=== PATIENT | male | born 1950 | race Caucasian/White ===

== ENCOUNTER 2017-10-29 04:34 | Emergency (ER) | payer MEDICARE ==
[~2017-10-29] VITALS: Wt 97.5 kg
--- NOTE | ~2017-10-29 | EKG ---
[place], [place] ELECTROCARDIOGRAM REPORT NAME: MAUREEN HIGHTOWER UNIT #: [id number] ROOM: DOCTOR: EPIPHANY DRAFT REPORT BIRTHDATE: [birth year] [facility] Test Date: 2017-10-29 Test Time: 04:58:06 Pat Name: MAUREEN HIGHTOWER Department: Room: Gender: M Order Clerk: Eve Cisneros : 1950 Requested By: PAPITO REDD Order Number: [id number] Reading MD: Isaiah Charles MD Measurements Intervals [place] Rate: 72 P: -31 [place]: 194 QRS: 3 QRSD: 100 T: 22 QT: 456 QTc: 500 Interpretive Statements Sinus rhythm Atrial premature complexes with atrial bigeminy Borderline T wave abnormalities Borderline prolonged QT interval Baseline wander in lead(s) V1,V2,V3,V4,V5,V6 Compared to ECG 10/18/2017 13:26:32 Atrial premature complex(es) now present Electronically Signed On 10-29-2017 16:20:15 PDT by Isaiah Charles MD CM:EKGRPT:ELECTROCARDIOGRAM REPORT [id number] PAPITO REDD MD [facility] PAPITO REDD MD
[~2017-10-29 04:34] MED LIST: ALLOPURINOL300 MG PO; APRESOLINE25 MG PO; CRESTOR20 M1 PO; ENALAPRIL20 MG PO; FLOMAX0.4 MG PO; HYDRALAZINE10 MG PO; NORVASC10 MG PO; SERTRALINE HYD100 MG PO; SOTALOL80 MG PO; VITAMIN D22000 UNIT PO; WARFARIN SOD5 MG PO
[2017-10-29 05:17] LABS: BASO # 0.1 10*3/uL (0.0-0.1); BASO % 0.9 % (0.0-1.0); EOS # 0.2 10*3/uL (0.0-0.4); EOS % 2.7 % (1.0-4.0); HEMATOCRIT 39.7 % (42.0-52.0); LYMPH # 1.2 10*3/uL (1.3-4.4); LYMPH % 15.2 % (27.0-41.0); MEAN CELL VOLUME 92.5 fl (80.0-94.0); MEAN CORPUSCULAR HGB 30.3 pg (27.0-31.0); MEAN CORPUSCULAR HGB CONC 32.7 g/dl (33.0-37.0); MEAN PLATELET VOLUME 9.5 fl (9.6-12.3); MONO # 0.5 10*3/uL (0.1-1.0); MONO % 6.2 % (3.0-9.0); NEUT # 5.8 10*3/uL (2.3-7.9); NEUT % 74.7 % (47.0-73.0); PLATELET COUNT AUTOMATED 217 10*3/uL (130-400); RED BLOOD COUNT 4.29 10*6/uL (4.50-5.90); RED CELL DISTRI WIDTH 13.2 % (0-14.5); WHITE BLOOD COUNT 7.8 10*3/uL (4.8-10.8)
[2017-10-29 05:38] LABS: ACT PARTIAL THROMBO TIME 32.8 SECONDS (20.8-31.5); ALBUMIN 3.6 gm/dl (3.1-4.5); ALKALINE PHOSPHATASE 71 U/L (45-117); BUN 28 mg/dl (7-24); CHLORIDE 109 mmol/L (98-107); CREATININE 1.18 mg/dL (0.70-1.30); INTERNATIONAL NORM RATIO 2.8 (2.0-3.5); LIPASE 100 U/L (73-393); POTASSIUM 3.9 mmol/L (3.5-5.1); SGOT/AST 23 IU/L (3-35); SGPT/ALT 32 U/L (12-78); SODIUM 143 mmol/L (136-145); TOTAL PROTEIN 7.1 gm/dL (6.4-8.2)
[2017-10-29 05:40] LABS: TROPONIN I < 0.015 ng/ml (<0.045)
== END 2017-10-29 08:08 | disposition short-term general hospital (02) ==
LOC: ED 04:34
PROVIDERS: Emergency Medicine Emergency Medical Services
DX: R41.82 Altered mental status, unspecified (principal); R56.9 Unspecified convulsions; Z79.01 Long term (current) use of anticoagulants; Z79.899 Other long term (current) drug therapy; Z86.73 Personal history of transient ischemic attack (TIA), and cerebral infarction without residual deficits

== ENCOUNTER 2018-09-16 15:44 | Emergency (ER) | payer MEDICARE ==
[~2018-09-16] VITALS: Ht 177.8 cm; Wt 98.0 kg
[2018-09-16] MEDS ORDERED: PREDNISONE50 MG PO (17:16)
== END 2018-09-16 17:43 | disposition home or self-care (01) ==
LOC: ED 15:44
DX: T63.441A Toxic effect of venom of bees, accidental (unintentional), initial encounter (principal); R60.0 Localized edema; L53.9 Erythematous condition, unspecified; Z79.899 Other long term (current) drug therapy; Z79.01 Long term (current) use of anticoagulants; Y92.89 Other specified places as the place of occurrence of the external cause

== ENCOUNTER → 2019-08-13 | Outpatient (CLI) | payer MEDICARE ==
[~2019-08-13] MED LIST changes: +PREDNISONE50 MG PO
== END | disposition home or self-care (01) ==
LOC: US 11:06
DX: R31.9 Hematuria, unspecified (principal)

== ENCOUNTER → 2019-08-31 | Outpatient (CLI) | payer MEDICARE ==
[2019-08-31 08:39] LABS: BASO # 0.1 10*3/uL (0.0-0.1); BASO % 0.8 % (0.0-1.0); EOS # 0.1 10*3/uL (0.0-0.4); EOS % 1.7 % (1.0-4.0); HEMATOCRIT 43.1 % (42.0-52.0); LYMPH # 1.5 10*3/uL (1.3-4.4); LYMPH % 25.4 % (27.0-41.0); MEAN CELL VOLUME 93.1 fl (80.0-94.0); MEAN CORPUSCULAR HGB 30.2 pg (27.0-31.0); MEAN CORPUSCULAR HGB CONC 32.5 g/dl (33.0-37.0); MEAN PLATELET VOLUME 10.3 fl (9.6-12.3); MONO # 0.5 10*3/uL (0.1-1.0); NEUT # 3.7 10*3/uL (2.3-7.9); NEUT % 62.8 % (47.0-73.0); PLATELET COUNT AUTOMATED 215 10*3/uL (130-400); RED BLOOD COUNT 4.63 10*6/uL (4.50-5.90); WHITE BLOOD COUNT 5.9 10*3/uL (4.8-10.8)
[2019-08-31 08:58] LABS: ALBUMIN 3.9 gm/dl (3.1-4.5); ALKALINE PHOSPHATASE 66 U/L (45-117); BUN 26 mg/dl (7-24); CHLORIDE 106 mmol/L (98-107); CREATININE 1.35 mg/dL (0.70-1.30); SGOT/AST 15 IU/L (3-35); SGPT/ALT 27 U/L (12-78); SODIUM 139 mmol/L (136-145); TOTAL PROTEIN 7.2 gm/dL (6.4-8.2)
[2019-08-31 09:03] LABS: RBC TNTC rbc/hpf (0-2)
[2019-08-31 09:04] LABS: BILIRUBIN NEGATIVE (NEGATIVE); BLOOD 3+ (NEGATIVE); CLARITY CLOUDY (CLEAR); COLOR YELLOW (YELLOW); GLUCOSE NEGATIVE (NEGATIVE); KETONE TRACE (NEGATIVE); LEUKO ESTERASE NEGATIVE (NEGATIVE); NITRITE NEGATIVE (NEGATIVE); SPECIFIC GRAVITY 1.025 (1.005-1.030); UROBILINOGEN 0.2 E.U./dl (0.2-1.0)
== END | disposition home or self-care (01) ==
LOC: LAB 08:08
PROVIDERS: Urology
DX: Z12.5 Encounter for screening for malignant neoplasm of prostate (principal); D40.0 Neoplasm of uncertain behavior of prostate; I10 Essential (primary) hypertension; R31.9 Hematuria, unspecified

== ENCOUNTER → 2019-09-02 | Outpatient (CLI) | payer MEDICARE | END | disposition home or self-care (01) | LOC: CT 08:43 | DX: N28.1 Cyst of kidney, acquired (principal); K40.90 Unilateral inguinal hernia, without obstruction or gangrene, not specified as recurrent; R31.9 Hematuria, unspecified; M47.816 Spondylosis without myelopathy or radiculopathy, lumbar region ==

== ENCOUNTER → 2020-07-13 | Outpatient (CLI) | payer MEDICARE ==
[2020-07-13 11:39] LABS: BASO # 0.1 10*3/uL (0.0-0.1); BASO % 1.3 % (0.0-1.0); EOS # 0.1 10*3/uL (0.0-0.4); EOS % 1.9 % (1.0-4.0); LYMPH # 1.7 10*3/uL (1.3-4.4); MEAN CELL VOLUME 93.1 fl (80.0-94.0); MEAN CORPUSCULAR HGB 30.2 pg (27.0-31.0); MEAN CORPUSCULAR HGB CONC 32.4 g/dl (33.0-37.0); MEAN PLATELET VOLUME 9.9 fl (9.6-12.3); MONO # 0.6 10*3/uL (0.1-1.0); MONO % 9.1 % (3.0-9.0); NEUT # 3.9 10*3/uL (2.3-7.9); NEUT % 61.5 % (47.0-73.0); PLATELET COUNT AUTOMATED 221 10*3/uL (130-400); RED BLOOD COUNT 4.51 10*6/uL (4.50-5.90); RED CELL DISTRI WIDTH 13.2 % (0-14.5); WHITE BLOOD COUNT 6.4 10*3/uL (4.8-10.8)
[2020-07-13 12:08] LABS: ALBUMIN 4.1 gm/dl (3.1-4.5); ALKALINE PHOSPHATASE 71 U/L (45-117); BUN 31 mg/dl (7-24); CHLORIDE 107 mmol/L (98-107); FREE T4 1.01 ng/dl (0.76-1.46); POTASSIUM 3.8 mmol/L (3.5-5.1); SGOT/AST 27 IU/L (3-35); SGPT/ALT 33 U/L (12-78); SODIUM 140 mmol/L (136-145); TOTAL PROTEIN 7.4 gm/dL (6.4-8.2)
== END | disposition home or self-care (01) ==
LOC: LAB 11:21
PROVIDERS: ATTEND Internal Medicine
DX: G31.84 Mild cognitive impairment of uncertain or unknown etiology (principal); Q25.46 Tortuous aortic arch

== ENCOUNTER → 2020-07-21 | Outpatient (CLI) | payer MEDICARE | END | disposition home or self-care (01) | LOC: US 13:05 | PROVIDERS: ATTEND Internal Medicine | DX: E11.51 Type 2 diabetes mellitus with diabetic peripheral angiopathy without gangrene (principal); I70.209 Unspecified atherosclerosis of native arteries of extremities, unspecified extremity; R06.02 Shortness of breath; R42 Dizziness and giddiness; G31.84 Mild cognitive impairment of uncertain or unknown etiology ==

== ENCOUNTER → 2020-07-31 | Outpatient (CLI) | payer MEDICARE | END | disposition home or self-care (01) | LOC: CARD 07:59 | PROVIDERS: ATTEND Internal Medicine | DX: I35.1 Nonrheumatic aortic (valve) insufficiency (principal); G31.84 Mild cognitive impairment of uncertain or unknown etiology; R29.898 Other symptoms and signs involving the musculoskeletal system ==

== ENCOUNTER → 2020-11-08 | Outpatient (CLI) | payer MEDICARE ==
[2020-11-08 10:29] LABS: BASO # 0.1 10*3/uL (0.0-0.1); EOS # 0.1 10*3/uL (0.0-0.4); HEMATOCRIT 44.6 % (42.0-52.0); LYMPH # 1.6 10*3/uL (1.3-4.4); LYMPH % 23.1 % (27.0-41.0); MEAN CORPUSCULAR HGB 30.1 pg (27.0-31.0); MEAN CORPUSCULAR HGB CONC 32.7 g/dl (33.0-37.0); MEAN PLATELET VOLUME 10.1 fl (9.6-12.3); MONO # 0.6 10*3/uL (0.1-1.0); MONO % 8.9 % (3.0-9.0); NEUT # 4.5 10*3/uL (2.3-7.9); NEUT % 64.7 % (47.0-73.0); PLATELET COUNT AUTOMATED 209 10*3/uL (130-400); RED BLOOD COUNT 4.85 10*6/uL (4.50-5.90); RED CELL DISTRI WIDTH 14.3 % (0-14.5); WHITE BLOOD COUNT 6.9 10*3/uL (4.8-10.8)
[2020-11-08 10:41] LABS: BILIRUBIN Negative (Negative); BLOOD Negative (Negative); CLARITY Cloudy (Clear); COLOR Yellow (Yellow); GLUCOSE Negative (Negative); KETONE Trace (Negative); LEUKO ESTERASE Negative (Negative); NITRITE Negative (Negative); PH 7.5 (4.5-8.0)
[2020-11-08 10:47] LABS: ALBUMIN 4.1 gm/dl (3.1-4.5); ALKALINE PHOSPHATASE 78 U/L (45-117); BUN 26 mg/dl (7-24); CHLORIDE 109 mmol/L (98-107); CREATININE 1.11 mg/dL (0.70-1.30); POTASSIUM 4.2 mmol/L (3.5-5.1); SGOT/AST 26 IU/L (3-35); SGPT/ALT 36 U/L (12-78); SODIUM 143 mmol/L (136-145); TOTAL PROTEIN 7.3 gm/dL (6.4-8.2)
[2020-11-08 11:15] LABS: RBC 0-2 rbc/hpf (0-2)
== END | disposition home or self-care (01) ==
LOC: LAB 09:59
PROVIDERS: ATTEND Urology
DX: Z12.5 Encounter for screening for malignant neoplasm of prostate (principal); C67.9 Malignant neoplasm of bladder, unspecified; D40.0 Neoplasm of uncertain behavior of prostate; R53.83 Other fatigue

== ENCOUNTER → 2020-11-09 | Outpatient (CLI) | payer MEDICARE | END | disposition home or self-care (01) | LOC: CT 00:59 | PROVIDERS: ATTEND Urology | DX: N28.1 Cyst of kidney, acquired (principal); K44.9 Diaphragmatic hernia without obstruction or gangrene; N40.0 Benign prostatic hyperplasia without lower urinary tract symptoms; K40.90 Unilateral inguinal hernia, without obstruction or gangrene, not specified as recurrent; N28.89 Other specified disorders of kidney and ureter; R31.9 Hematuria, unspecified ==

== ENCOUNTER 2021-01-15 09:39 | Emergency (ER) | payer MEDICARE ==
[~2021-01-15] VITALS: Ht 182.8 cm; Wt 103.9 kg
[2021-01-15 10:46] LABS: BASO % 0.5 % (0.0-1.0); EOS % 0.4 % (1.0-4.0); HEMATOCRIT 41.6 % (42.0-52.0); LYMPH # 0.9 10*3/uL (1.3-4.4); LYMPH % 10.7 % (27.0-41.0); MEAN CELL VOLUME 93.7 fl (80.0-94.0); MEAN CORPUSCULAR HGB 30.6 pg (27.0-31.0); MEAN CORPUSCULAR HGB CONC 32.7 g/dl (33.0-37.0); MEAN PLATELET VOLUME 9.9 fl (9.6-12.3); MONO # 0.4 10*3/uL (0.1-1.0); NEUT # 6.8 10*3/uL (2.3-7.9); NEUT % 83.3 % (47.0-73.0); PLATELET COUNT AUTOMATED 171 10*3/uL (130-400); RED BLOOD COUNT 4.44 10*6/uL (4.50-5.90); RED CELL DISTRI WIDTH 13.4 % (0-14.5); WHITE BLOOD COUNT 8.1 10*3/uL (4.8-10.8)
[2021-01-15 11:06] LABS: ALBUMIN 3.8 gm/dl (3.1-4.5); ALKALINE PHOSPHATASE 69 U/L (45-117); BUN 25 mg/dl (7-24); CHLORIDE 107 mmol/L (98-107); CREATININE 1.09 mg/dL (0.70-1.30); POTASSIUM 4.2 mmol/L (3.5-5.1); SGOT/AST 27 IU/L (3-35); SGPT/ALT 33 U/L (12-78); SODIUM 138 mmol/L (136-145); TOTAL PROTEIN 7.1 gm/dL (6.4-8.2)
[2021-01-15] MEDS ORDERED: KEPPRA1000 MG PO (13:24)
== END 2021-01-15 16:14 | disposition home or self-care (01) ==
LOC: ED 09:39
PROVIDERS: Student in an Organized Health Care Education/Training Program
DX: R56.9 Unspecified convulsions (principal); Z79.899 Other long term (current) drug therapy

== ENCOUNTER → 2021-05-22 | Outpatient (CLI) | payer MEDICARE ==
[~2021-05-22] MED LIST changes: +KEPPRA1000 MG PO
[2021-05-22 10:15] LABS: BASO # 0.1 10*3/uL (0.0-0.1); BASO % 0.8 % (0.0-1.0); EOS # 0.1 10*3/uL (0.0-0.4); EOS % 1.5 % (1.0-4.0); HEMATOCRIT 44.7 % (42.0-52.0); LYMPH # 1.5 10*3/uL (1.3-4.4); LYMPH % 23.7 % (27.0-41.0); MEAN CELL VOLUME 92.7 fl (80.0-94.0); MEAN CORPUSCULAR HGB 30.5 pg (27.0-31.0); MEAN CORPUSCULAR HGB CONC 32.9 g/dl (33.0-37.0); MEAN PLATELET VOLUME 10.1 fl (9.6-12.3); MONO # 0.5 10*3/uL (0.1-1.0); MONO % 8.7 % (3.0-9.0); PLATELET COUNT AUTOMATED 207 10*3/uL (130-400); RED BLOOD COUNT 4.82 10*6/uL (4.50-5.90); RED CELL DISTRI WIDTH 13.1 % (0-14.5); WHITE BLOOD COUNT 6.2 10*3/uL (4.8-10.8)
[2021-05-22 10:34] LABS: ALKALINE PHOSPHATASE 74 U/L (45-117); BUN 24 mg/dl (7-24); CHLORIDE 107 mmol/L (98-107); CREATININE 1.26 mg/dL (0.70-1.30); POTASSIUM 4.3 mmol/L (3.5-5.1); SGOT/AST 23 IU/L (3-35); SGPT/ALT 27 U/L (12-78); SODIUM 143 mmol/L (136-145); TOTAL PROTEIN 7.4 gm/dL (6.4-8.2)
== END | disposition home or self-care (01) ==
LOC: LAB 09:45 → CT 11:00
PROVIDERS: ATTEND Urology
DX: C67.9 Malignant neoplasm of bladder, unspecified (principal); Z12.5 Encounter for screening for malignant neoplasm of prostate; N28.1 Cyst of kidney, acquired; R91.1 Solitary pulmonary nodule; I71.2 Thoracic aortic aneurysm, without rupture

== ENCOUNTER → 2021-07-03 | Outpatient (CLI) | payer MEDICARE | END | disposition home or self-care (01) | LOC: US 06-15 10:30 | PROVIDERS: ATTEND Urology | DX: N28.1 Cyst of kidney, acquired (principal) ==

== ENCOUNTER 2021-09-14 21:45 | Emergency (ER) | payer MEDICARE ==
[~2021-09-14] VITALS: Ht 180.3 cm; Wt 100.2 kg
[2021-09-14 22:19] LABS: BASO # 0.1 10*3/uL (0.0-0.1); BASO % 1.1 % (0.0-1.0); EOS # 0.1 10*3/uL (0.0-0.4); EOS % 1.2 % (1.0-4.0); HEMATOCRIT 43.4 % (42.0-52.0); LYMPH # 1.4 10*3/uL (1.3-4.4); MEAN CELL VOLUME 93.3 fl (80.0-94.0); MEAN CORPUSCULAR HGB 30.3 pg (27.0-31.0); MEAN CORPUSCULAR HGB CONC 32.5 g/dl (33.0-37.0); MEAN PLATELET VOLUME 10.1 fl (9.6-12.3); MONO # 0.5 10*3/uL (0.1-1.0); MONO % 8.2 % (3.0-9.0); NEUT # 4.4 10*3/uL (2.3-7.9); NEUT % 67.3 % (47.0-73.0); PLATELET COUNT AUTOMATED 193 10*3/uL (130-400); RED BLOOD COUNT 4.65 10*6/uL (4.50-5.90); WHITE BLOOD COUNT 6.5 10*3/uL (4.8-10.8)
[2021-09-14 22:28] LABS: INTERNATIONAL NORM RATIO 3.6 (2.0-3.5)
[2021-09-14 22:36] LABS: ALKALINE PHOSPHATASE 72 U/L (45-117); BUN 34 mg/dl (7-24); CHLORIDE 112 mmol/L (98-107); CREATININE 1.31 mg/dL (0.70-1.30); LIPASE 85 U/L (73-393); POTASSIUM 4.3 mmol/L (3.5-5.1); SGOT/AST 28 IU/L (3-35); SGPT/ALT 27 U/L (12-78); SODIUM 143 mmol/L (136-145); TOTAL PROTEIN 7.3 gm/dL (6.4-8.2)
== END 2021-09-15 00:27 | disposition home or self-care (01) ==
LOC: ED 21:45
PROVIDERS: Physician Assistant
DX: T18.128A Food in esophagus causing other injury, initial encounter (principal); N17.9 Acute kidney failure, unspecified; R10.13 Epigastric pain; R11.2 Nausea with vomiting, unspecified; Z79.01 Long term (current) use of anticoagulants; Z79.899 Other long term (current) drug therapy; Y92.89 Other specified places as the place of occurrence of the external cause

== ENCOUNTER → 2021-09-25 | Outpatient (CLI) | payer MEDICARE | END | disposition home or self-care (01) | LOC: CARD 08-30 15:00 | PROVIDERS: ATTEND Internal Medicine Cardiovascular Disease | DX: Z95.2 Presence of prosthetic heart valve (principal) ==

== ENCOUNTER → 2022-06-12 | Outpatient (CLI) | payer MEDICARE ==
[2022-06-12 11:01] LABS: BUN 24 mg/dl (9-23)
== END | disposition home or self-care (01) ==
LOC: LAB 00:45 → CT 11:00 → LAB 11:00
PROVIDERS: ATTEND Urology
DX: C67.9 Malignant neoplasm of bladder, unspecified (principal); K76.0 Fatty (change of) liver, not elsewhere classified; N26.1 Atrophy of kidney (terminal); N40.0 Benign prostatic hyperplasia without lower urinary tract symptoms; N28.1 Cyst of kidney, acquired; K57.90 Diverticulosis of intestine, part unspecified, without perforation or abscess without bleeding; K40.90 Unilateral inguinal hernia, without obstruction or gangrene, not specified as recurrent; M43.17 Spondylolisthesis, lumbosacral region; M48.07 Spinal stenosis, lumbosacral region; Z90.49 Acquired absence of other specified parts of digestive tract

== ENCOUNTER → 2022-09-09 | Outpatient (CLI) | payer MEDICARE ==
[2022-09-09 11:51] LABS: INTERNATIONAL NORM RATIO 1.6 (2.0-3.5)
== END | disposition home or self-care (01) ==
LOC: LAB 11:00
PROVIDERS: ATTEND Internal Medicine
DX: Z95.2 Presence of prosthetic heart valve (principal)

== ENCOUNTER → 2022-09-23 | Outpatient (CLI) | payer MEDICARE | END | disposition home or self-care (01) | LOC: LAB 08:48 | PROVIDERS: ATTEND Urology | DX: Z12.5 Encounter for screening for malignant neoplasm of prostate (principal); R53.83 Other fatigue ==

== ENCOUNTER → 2022-09-27 | Outpatient (CLI) | payer MEDICARE | END | disposition home or self-care (01) | LOC: LAB 15:46 | PROVIDERS: ATTEND Internal Medicine | DX: R56.9 Unspecified convulsions (principal) ==

== ENCOUNTER → 2023-04-29 | Outpatient (CLI) | payer MEDICARE ==
[2023-04-29 09:27] LABS: BILIRUBIN Negative (Negative); BLOOD Negative (Negative); CLARITY Clear (Clear); COLOR Yellow (Yellow); GLUCOSE Negative (Negative); KETONE Negative (Negative); LEUKO ESTERASE Negative (Negative); NITRITE Negative (Negative); PH 5.5 (4.5-8.0); SPECIFIC GRAVITY 1.015 (1.001-1.030); UROBILINOGEN 0.2 E.U./dl (0.0-1.0)
[2023-04-29 09:28] LABS: BASO # 0.1 10*3/uL (0.0-0.1); BASO % 0.9 % (0.0-1.0); EOS # 0.1 10*3/uL (0.0-0.4); EOS % 1.5 % (1.0-4.0); HEMATOCRIT 48.3 % (42.0-52.0); LYMPH # 1.8 10*3/uL (1.3-4.4); LYMPH % 25.6 % (27.0-41.0); MEAN CELL VOLUME 94.2 fl (80.0-94.0); MEAN CORPUSCULAR HGB 30.2 pg (27.0-31.0); MEAN CORPUSCULAR HGB CONC 32.1 g/dl (33.0-37.0); MEAN PLATELET VOLUME 10.3 fl (9.6-12.3); MONO # 0.5 10*3/uL (0.1-1.0); MONO % 6.7 % (3.0-9.0); NEUT # 4.5 10*3/uL (2.3-7.9); NEUT % 65.2 % (47.0-73.0); PLATELET COUNT AUTOMATED 212 10*3/uL (130-400); RED BLOOD COUNT 5.13 10*6/uL (4.50-5.90); WHITE BLOOD COUNT 6.8 10*3/uL (4.8-10.8)
[2023-04-29 09:39] LABS: BACTERIA 2+; EPITHELIAL CELLS 0-2
[2023-04-29 09:53] LABS: ALKALINE PHOSPHATASE 67 U/L (46-116); BUN 25 mg/dl (9-23); CHLORIDE 104 mmol/L (98-107); POTASSIUM 4.1 mmol/L (3.4-5.1); SGPT/ALT 20 U/L (5-49); TOTAL PROTEIN 7.4 gm/dL (6.0-8.0)
== END | disposition home or self-care (01) ==
LOC: LAB 01:29
PROVIDERS: ATTEND Urology
DX: Z12.5 Encounter for screening for malignant neoplasm of prostate (principal); C67.9 Malignant neoplasm of bladder, unspecified; D40.0 Neoplasm of uncertain behavior of prostate; R53.83 Other fatigue

== ENCOUNTER 2023-12-17 10:27 | Emergency (ER) | payer MEDICARE ==
[~2023-12-17] VITALS: Ht 177.8 cm; Wt 97.5 kg
[2023-12-17] MEDS ORDERED: FINASTERIDE5 M1 PO (10:45)
[2023-12-17] MEDS ORDERED: DULOXETINE HCL30 MG PO (10:45)
[2023-12-17] MEDS ORDERED: WARFARIN SODIUM6 MG PO (10:45)
[2023-12-17] MEDS ORDERED: ZETIA10 MG PO (10:46)
[2023-12-17] MEDS ORDERED: LEVETIRACETAM1000 M1 PO (10:47)
[2023-12-17] MEDS ORDERED: SODIUM CHLORIDE 0.9% 1,000 ML IV ONE (11:40)
[2023-12-17 11:56] LABS: BASO % 0.6 % (0.0-1.0); EOS # 0.1 10*3/uL (0.0-0.4); EOS % 0.9 % (1.0-4.0); HEMATOCRIT 46.3 % (42.0-52.0); LYMPH # 1.5 10*3/uL (1.3-4.4); LYMPH % 22.5 % (27.0-41.0); MEAN CELL VOLUME 95.3 fl (80.0-94.0); MEAN CORPUSCULAR HGB 31.1 pg (27.0-31.0); MEAN CORPUSCULAR HGB CONC 32.6 g/dl (33.0-37.0); MEAN PLATELET VOLUME 9.5 fl (9.6-12.3); MONO # 0.5 10*3/uL (0.1-1.0); MONO % 7.9 % (3.0-9.0); NEUT # 4.6 10*3/uL (2.3-7.9); PLATELET COUNT AUTOMATED 232 10*3/uL (130-400); RED BLOOD COUNT 4.86 10*6/uL (4.50-5.90); WHITE BLOOD COUNT 6.7 10*3/uL (4.8-10.8)
[2023-12-17 12:18] LABS: ALKALINE PHOSPHATASE 64 U/L (46-116); BUN 27 mg/dl (9-23); CHLORIDE 103 mmol/L (98-107); POTASSIUM 3.5 mmol/L (3.4-5.1); SGPT/ALT 12 U/L (5-49); TOTAL PROTEIN 7.3 gm/dL (6.0-8.0)
[2023-12-17 12:45] LABS: BILIRUBIN Negative (Negative); BLOOD Negative (Negative); CLARITY Clear (Clear); COLOR Yellow (Yellow); GLUCOSE Negative (Negative); KETONE Negative (Negative); LEUKO ESTERASE Trace (Negative); NITRITE Negative (Negative); UROBILINOGEN 0.2 E.U./dl (0.0-1.0)
[2023-12-17 12:59] LABS: BACTERIA 1+; MUCOUS 2+
[2023-12-17] MEDS ORDERED: OMNICEF300 MG PO (13:42)
[2023-12-17] MEDS ORDERED: LEVETIRACETAM IN NACL (ISO-OS) 100 ML IV ONE (13:45)
[2023-12-17] MEDS ORDERED: Ceftriaxone Sodium 1 GM/10 ML SYR IV ONE (13:45)
== END 2023-12-17 15:33 | disposition home or self-care (01) ==
LOC: ED 10:27
PROVIDERS: Nurse Practitioner Family
DX: N39.0 Urinary tract infection, site not specified (principal); R19.7 Diarrhea, unspecified; I25.10 Atherosclerotic heart disease of native coronary artery without angina pectoris; I10 Essential (primary) hypertension; Z86.73 Personal history of transient ischemic attack (TIA), and cerebral infarction without residual deficits; Z91.148 Patient's other noncompliance with medication regimen for other reason; Z98.890 Other specified postprocedural states

== ENCOUNTER → 2023-12-25 | Outpatient (CLI) | payer MEDICARE ==
[~2023-12-25] MED LIST changes: +DULOXETINE HCL30 MG PO; +FINASTERIDE5 M1 PO; +LEVETIRACETAM1000 M1 PO; +OMNICEF300 MG PO; +WARFARIN SODIUM6 MG PO; +ZETIA10 MG PO
== END | disposition home or self-care (01) ==
LOC: LAB 10:08
PROVIDERS: ATTEND Internal Medicine
DX: R56.9 Unspecified convulsions (principal); G30.0 Alzheimer's disease with early onset

== ENCOUNTER → 2024-01-26 | Outpatient (CLI) | payer MEDICARE ==
[2024-01-26 08:36] LABS: BASO # 0.1 10*3/uL (0.0-0.1); BASO % 0.9 % (0.0-1.0); EOS # 0.1 10*3/uL (0.0-0.4); EOS % 1.3 % (1.0-4.0); HEMATOCRIT 46.1 % (42.0-52.0); MEAN CORPUSCULAR HGB 31.9 pg (27.0-31.0); MEAN CORPUSCULAR HGB CONC 33.2 g/dl (33.0-37.0); MEAN PLATELET VOLUME 9.9 fl (9.6-12.3); MONO # 0.4 10*3/uL (0.1-1.0); MONO % 6.8 % (3.0-9.0); NEUT % 62.1 % (47.0-73.0); PLATELET COUNT AUTOMATED 233 10*3/uL (130-400); RED CELL DISTRI WIDTH 13.1 % (0-14.5); WHITE BLOOD COUNT 6.4 10*3/uL (4.8-10.8)
[2024-01-26 08:40] LABS: BILIRUBIN 1+ (Negative); BLOOD Negative (Negative); CLARITY Cloudy (Clear); COLOR Dark Yellow (Yellow); GLUCOSE Negative (Negative); KETONE Trace (Negative); LEUKO ESTERASE Negative (Negative); NITRITE Negative (Negative); PH 5.5 (4.5-8.0); SPECIFIC GRAVITY >= 1.030 (1.001-1.030)
[2024-01-26 09:35] LABS: ALKALINE PHOSPHATASE 72 U/L (46-116); BUN 28 mg/dl (9-23); CHLORIDE 105 mmol/L (98-107); POTASSIUM 4.3 mmol/L (3.4-5.1); SGPT/ALT 19 U/L (5-49); TOTAL PROTEIN 7.2 gm/dL (6.0-8.0)
[2024-01-26 10:17] LABS: BACTERIA 2+; MUCOUS 3+; WBC 16-20 wbc/hpf (0-5)
== END | disposition home or self-care (01) ==
LOC: LAB 07:58
PROVIDERS: ATTEND Urology
DX: Z12.5 Encounter for screening for malignant neoplasm of prostate (principal); C67.9 Malignant neoplasm of bladder, unspecified; D40.0 Neoplasm of uncertain behavior of prostate; R53.83 Other fatigue

== ENCOUNTER → 2024-01-27 | Outpatient (CLI) | payer MEDICARE ==
[~2024-01-27] MED LIST changes: +IOHEXOL 350 MG/ML 100 ML VIAL IV ONE
== END | disposition home or self-care (01) ==
LOC: CT 01:08
PROVIDERS: ATTEND Urology
DX: C67.9 Malignant neoplasm of bladder, unspecified (principal); N28.1 Cyst of kidney, acquired; K40.90 Unilateral inguinal hernia, without obstruction or gangrene, not specified as recurrent; M43.17 Spondylolisthesis, lumbosacral region

== ENCOUNTER → 2024-11-01 | Outpatient (CLI) | payer MEDICARE ==
[2024-11-01 11:05] LABS: BASO # 0.1 10*3/uL (0.0-0.1); BASO % 0.9 % (0.0-1.0); EOS # 0.1 10*3/uL (0.0-0.4); EOS % 1.2 % (1.0-4.0); MEAN CELL VOLUME 92.3 fl (80.0-94.0); MEAN CORPUSCULAR HGB 29.4 pg (27.0-31.0); MEAN PLATELET VOLUME 10.3 fl (9.6-12.3); MONO # 0.5 10*3/uL (0.1-1.0); MONO % 9.0 % (3.0-9.0); NEUT # 3.6 10*3/uL (2.3-7.9); NEUT % 64.0 % (47.0-73.0); NUCLEATED RED BLOOD CELL 0.0 % (0.0-0.0); NUCLEATED RED BLOOD CELL 0.0 10*3/uL (0.0-0.0); PLATELET COUNT AUTOMATED 205 10*3/uL (130-400); RED CELL DISTRI WIDTH 13.8 % (0-14.5)
[2024-11-01 11:32] LABS: BUN 31 mg/dl (9-23); SGPT/ALT 16 U/L (5-49)
== END | disposition home or self-care (01) ==
LOC: CT 01:48 → LAB 01:48 → CT 11:00
PROVIDERS: ATTEND Urology
DX: K40.90 Unilateral inguinal hernia, without obstruction or gangrene, not specified as recurrent (principal); N28.89 Other specified disorders of kidney and ureter; N28.1 Cyst of kidney, acquired; D40.0 Neoplasm of uncertain behavior of prostate; E29.1 Testicular hypofunction; R53.83 Other fatigue; C67.9 Malignant neoplasm of bladder, unspecified; M47.817 Spondylosis without myelopathy or radiculopathy, lumbosacral region; Z12.5 Encounter for screening for malignant neoplasm of prostate

== ENCOUNTER → 2024-11-23 | Outpatient (CLI) | payer MEDICARE ==
[~2024-11-23] MED LIST changes: -IOHEXOL 350 MG/ML 100 ML VIAL IV ONE
== END | disposition home or self-care (01) ==
LOC: CARD 02:30
PROVIDERS: ATTEND Internal Medicine Cardiovascular Disease
DX: R42 Dizziness and giddiness (principal); Z95.2 Presence of prosthetic heart valve

== ENCOUNTER → 2024-12-21 | Outpatient (CLI) | payer MEDICARE | END | disposition home or self-care (01) | LOC: LAB 12-20 00:44 | PROVIDERS: ATTEND Internal Medicine | DX: R56.9 Unspecified convulsions (principal) ==

== ENCOUNTER → 2024-12-28 | Outpatient (CLI) | payer MEDICARE | END | disposition home or self-care (01) | LOC: LAB 02:47 | PROVIDERS: ATTEND Internal Medicine | DX: R89.2 Abnormal level of other drugs, medicaments and biological substances in specimens from other organs, systems and tissues (principal) ==

== ENCOUNTER → 2025-01-05 | Outpatient (CLI) | payer MEDICARE ==
[~2025-01-05] MED LIST changes: +IOHEXOL 350 MG/ML 100 ML VIAL IV ONE
== END | disposition home or self-care (01) ==
LOC: CT 01:55
PROVIDERS: ATTEND Urology
DX: C67.0 Malignant neoplasm of trigone of bladder (principal); N40.0 Benign prostatic hyperplasia without lower urinary tract symptoms; N28.1 Cyst of kidney, acquired; N32.89 Other specified disorders of bladder; K76.0 Fatty (change of) liver, not elsewhere classified